=== PATIENT | male | born 1970 | race Two or more races ===

== ENCOUNTER 2025-02-22 08:08 | Emergency (ER) | payer OTHER ==
[~2025-02-22] VITALS: Ht 175.3 cm; Wt 84.8 kg
[2025-02-22] MEDS ORDERED: DIPHENHYDRAMINE HCL 50 MG/ML VIAL 1ML IV ONE (09:15)
[2025-02-22] MEDS ORDERED: DEXAMETHASONE SODIUM PHOSP/PF 10 MG/ML VIAL IV ONE (09:15)
[2025-02-22] MEDS ORDERED: FAMOTIDINE/PF 20 MG/2 ML VIAL IV ONE (09:30)
[2025-02-22] MEDS ORDERED: MEDROLPACK PO (11:54)
[2025-02-22] MEDS ORDERED: PEPCID AC20 MG PO (11:54)
[2025-02-22] MEDS ORDERED: ZYRTEC10 M3 PO (11:54)
== END 2025-02-22 12:37 | disposition home or self-care (01) ==
LOC: ER 08:08
DX: T78.40XA Allergy, unspecified, initial encounter (principal); R21 Rash and other nonspecific skin eruption